=== PATIENT | male | born 1945 | race Caucasian/White ===

== ENCOUNTER 2024-09-13 09:58 | Emergency (ER) | payer MEDICARE, SELFPAY ==
[2024-09-13 10:08] VITALS: BP 126/75; PULSE 90; TEMP 36.5; O2SAT 97; BMI 26.1
--- NOTE | 2024-09-13 10:09 | XR_ITS ---
The [address] [address] Patient Name: SOFI JOSHI MRN: [id number] date: 1945 Sex: M Assigned Patient Location: ER Current Patient Location: .MAIN Accession/Order Number: [id number] Exam Date: 09/13/2024 10:20 Report Date: 09/13/2024 11:04 At the request of: GARY MORIN Procedure: XR wrist LT min 3V HISTORY: Left wrist pain after a fall on ice. XR wrist LT min 3V: 09/13/2024 10:20 AM EST COMPARISON: None. FINDINGS: No acute fracture or dislocation is seen. There is a well-corticated 1 mm ossific focus distal to the ulnar styloid process. There is also an ovoid well-corticated 5 mm ossific focus dorsal to the proximal carpal row seen on the lateral view. There appear to be at least mild to moderate degenerative changes of the radiocarpal joint. There are also mild degenerative changes of the first carpometacarpal joint and triscaphe joint. There are atherosclerotic vascular calcifications. XR/XR wrist LT min 3V IMPRESSION: 1. No acute fracture or dislocation is seen. 2. 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 3. 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 Electronically authenticated by: TERRELL LEAL Date: 09/13/2024 11:04
--- NOTE | 2024-09-13 10:09 | XR_ITS ---
The [address] [address] Patient Name: SOFI JOSHI MRN: [id number] date: 1945 Sex: M Assigned Patient Location: ER Current Patient Location: ED.MAIN Accession/Order Number: [id number] Exam Date: 09/13/2024 10:20 Report Date: 09/13/2024 11:02 At the request of: GARY MORIN Procedure: XR hip LT min 2V EXAM: XR hip LT min 2V INDICATION: fall. COMPARISON: None. TECHNIQUE: : Frontal and frog-leg lateral views of the left hip. Frontal view of the pelvis. FINDINGS: No acute fracture or dislocation. Mild degenerative changes of the left hip joint. Intact pelvic ring. Unremarkable soft tissues. XR/XR hip LT min 2V IMPRESSION: No acute osseous abnormality of the left hip. Electronically authenticated by: TAISHA VICTORIA Date: 09/13/2024 11:02
--- NOTE | 2024-09-13 10:09 | ED.FALL1 ---
HPI HPI - Fall General Chief Complaint: Fall Stated Complaint: FALL; L WRIST PAIN, L HIP PAIN Time Seen by Provider: 09/13/24 10:02 History of Present Illness HPI Narrative: 79-year-old male presents for left wrist and left hip pain. He fell on ice yesterday and hurt these 2 areas. He did not hit his head. He has been able to ambulate. It hurts more to move his wrist and he is right-handed. Related Data Home Medications ?Medication ?Instructions ?Recorded ?Confirmed metformin 500 mg tablet 1,000 mg PO BIDWM 09/13/24 09/13/24 verapamil 120 mg tablet,extended 120 mg PO Q12H 09/13/24 09/13/24 release Allergies Allergy/AdvReac Type Severity Reaction Status Date / Time cetylpyridinium chloride Allergy Severe Rash Verified 09/13/24 10:08 (From Cepacol) albuterol AdvReac Severe Palpitation Verified 09/13/24 10:08 s Opioid HPI Opioid Management Most Recent Pain and Opioid Data: Last Pain Scale 2 09/13/24 10:12 09/13/24 Review of Systems ROS Narrative A ten point review of systems is negative except as noted above. PFSH PFSH Social History Little interest or pleasure in doing things: not at all Feeling down, depressed, or hopeless: not at all Exam Narrative Exam Narrative: Nurses note and vital signs reviewed and patient is not hypoxic. General: The patient appears well and in no apparent distress. Patient is sitting on the edge of the cart with an ice pack on his left wrist. Skin: Warm, dry, no pallor noted. There is no rash noted. Head: Normocephalic, atraumatic Eye: Normal conjunctiva, no drainage Ears, Nose, Mouth, and Throat: oral mucosa is moist. Nares patent. Cardiovascular: Regular Rate and Rhythm Respiratory: Patient is in no distress, no accessory muscle use, lungs are clear to auscultation, no wheezing, rales or rhonchi Back: non-tender GI: Soft and nontender Musculoskeletal: He has some tenderness and swelling of the dorsum of his left wrist. Fingers have full range of motion. Left elbow nontender. No deformity in the left hip which has full range of motion. No abrasions. Neurological: A&O, normal speech Psychiatric: Cooperative Constitutional Vital Signs, click to edit/add: Last Vital Signs Temp 97.7 F 09/13/24 10:08 Pulse 90 09/13/24 10:08 Resp 18 09/13/24 10:08 BP 126/75 09/13/24 10:08 Pulse Ox 97 09/13/24 10:08 O2 Del Method Room Air 09/13/24 10:08 Course Vital Signs Vital signs: Vital Signs Temperature 97.7 F 09/13/24 10:08 Pulse Rate 90 09/13/24 10:08 Respiratory Rate 18 09/13/24 10:08 Blood Pressure 126/75 09/13/24 10:08 Pulse Oximetry 97 09/13/24 10:08 Oxygen Delivery Method Room Air 09/13/24 10:08 Temperature 97.7 F 09/13/24 10:08 Pulse Rate 90 09/13/24 10:08 Respiratory Rate 18 09/13/24 10:08 Blood Pressure 126/75 09/13/24 10:08 Pulse Oximetry 97 09/13/24 10:08 Oxygen Delivery Method Room Air 09/13/24 10:08 MDM - Fall MDM Narrative Medical decision making narrative: X-rays are negative. Don wrap applied to the wrist, application checked by me and found to be appropriate, the patient is neurovascularly intact. Treatment diagnosis and follow-up were discussed with the patient. Differential Diagnosis Differential diagnosis: Likely other (Fracture, contusion, sprain) Imaging Data Hip, wrist x-rays: Radiologist's impression: ITS Impressions Hip X-Ray 09/13/24 10:09 IMPRESSION: No acute osseous abnormality of the left hip. Electronically authenticated by: TAISHA VICTORIA Date: 09/13/2024 11:02 Wrist X-Ray 09/13/24 10:09 IMPRESSION: 1. No acute fracture or dislocation is seen. 2. 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 3. 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 Electronically authenticated by: TERRELL LEAL Date: 09/13/2024 11:04 Discharge Plan Discharge Chief Complaint: Fall Clinical Impression: Left wrist sprain, Fall Patient Disposition: Home, Self-Care Time of Disposition Decision: 11:12 Condition: Good Mode of Transportation: Private Vehicle Prescriptions / Home Meds: No Action verapamil 120 mg tablet extended release 120 mg PO Q12H metformin 500 mg tablet 1,000 mg PO BIDWM Print Language: Tuvaluan Instructions: Fall Prevention for Older Adults (ED), Wrist Sprain (ED) Referrals: Physician,Non-Staff, MD [Primary Care Provider] - 1 week
== END 2024-09-13 11:18 | disposition home or self-care (01) ==
PROVIDERS: Emergency Provider Emergency Medicine
DX: S63.502A Unspecified sprain of left wrist, initial encounter (principal); W00.0XXA Fall on same level due to ice and snow, initial encounter; M25.552 Pain in left hip
CPT/HCPCS: 73110; 73502; 99283